=== PATIENT | male | born 1995 | race African-American/Black ===

== ENCOUNTER 2017-02-28 20:44 | Emergency (ER) | payer MEDICAID | END 2017-02-28 22:53 | disposition left against medical advice (07) | LOC: ER 21:59 | DX: M79.671 Pain in right foot (principal); Z53.21 Procedure and treatment not carried out due to patient leaving prior to being seen by health care provider ==

== ENCOUNTER 2019-10-13 23:47 | Emergency (ER) | payer MEDICAID ==
[~2019-10-13] VITALS: Ht 177.8 cm; Wt 71.0 kg
[2019-10-14] MEDS ORDERED: BACITRACIN ZINC OINT UDPKT TOP ONE (00:45)
[2019-10-14] MEDS ORDERED: IBUPROFEN 600MG TABLET PO ONE (00:45)
[2019-10-14] MEDS ORDERED: TETANUS, DIPHTHERIA, PERTUSSIS VAC/PF 0.5ML (>7YR OLD) IM ONE (00:45)
[2019-10-14] MEDS ORDERED: LIDOCAINE 1%/EPI 1:100,000 10 ML VIAL IJ ONE (01:45)
[2019-10-14] MEDS ORDERED: LIDOCAINE HCL/EPINEPHRINE 1%-EPI 1:100,000 20 ML VIAL INFIL NR (02:15)
[2019-10-14 02:40] VITALS: BP 114/71
== END 2019-10-14 02:56 | disposition home or self-care (01) ==
LOC: ER 23:47
DX: S51.811A Laceration without foreign body of right forearm, initial encounter (principal); X58.XXXA Exposure to other specified factors, initial encounter; Y93.89 Activity, other specified; Y92.89 Other specified places as the place of occurrence of the external cause; Y99.8 Other external cause status
CPT/HCPCS: 12002; 73090; 90471; 90715; 99283; J3490

== ENCOUNTER 2019-10-22 13:07 | Emergency (ER) | payer MEDICAID ==
[~2019-10-22] VITALS: Ht 177.8 cm; Wt 71.0 kg
[2019-10-22 13:28] VITALS: BP 107/49
[2019-10-22 14:33] LABS: CLARITY URINE CLEAR (CLEAR); COLOR URINE YELLOW (YELLOW); KETONES URINE NEGATIVE (NEGATIVE); LEUKOCYTE ESTERASE URINE NEGATIVE (NEGATIVE); NITRITE URINE NEGATIVE (NEGATIVE); OCCULT BLOOD URINE NEGATIVE (NEGATIVE); PROTEIN URINE NEGATIVE (NEGATIVE); SPECIFIC GRAVITY URINE 1.021 (1.005-1.030)
== END 2019-10-22 14:20 | disposition home or self-care (01) ==
LOC: ER 13:07
DX: Z48.00 Encounter for change or removal of nonsurgical wound dressing (principal); N48.1 Balanitis
CPT/HCPCS: 81003; 99283

== ENCOUNTER 2021-10-14 20:10 | Emergency (ER) | payer MEDICAID ==
[~2021-10-14] VITALS: Ht 177.8 cm; Wt 74.6 kg
[2021-10-14 21:35] VITALS: BP 113/64
[2021-10-15] MEDS ORDERED: TETANUS, DIPHTHERIA, PERTUSSIS VAC/PF 0.5ML (>10YR OLD) IM ONE (01:00)
[2021-10-15] MEDS ORDERED: LIDOCAINE HCL 1% 20ML VIAL (Pyxis) INJ INFIL ONE (01:00)
[2021-10-15] MEDS ORDERED: BACITRACIN ZINC OINT UDPKT TOP ONE (03:30)
[2021-10-15] MEDS ORDERED: IBUP-2028 MT (04:39)
== END 2021-10-15 05:12 | disposition home or self-care (01) ==
LOC: ER 20:10
DX: S61.511A Laceration without foreign body of right wrist, initial encounter (principal); S61.411A Laceration without foreign body of right hand, initial encounter; X99.1XXA Assault by knife, initial encounter; Y93.89 Activity, other specified; Y92.89 Other specified places as the place of occurrence of the external cause
CPT/HCPCS: 12002; 73110; 90471; 90715; 99283; J3490

== ENCOUNTER → 2021-10-14 | Emergency (ER) | payer MEDICAID ==
[~2021-10-14] VITALS: Ht 177.8 cm; Wt 63.0 kg
[~2021-10-14] MED LIST: IBUP-2028 MT
[2021-10-14 13:14] VITALS: BP 94/59
== END ==
LOC: ER 13:07
DX: Z53.21 Procedure and treatment not carried out due to patient leaving prior to being seen by health care provider (principal)

== ENCOUNTER 2024-05-17 09:09 | Emergency (ER) | payer OTHER, MEDICAID ==
[~2024-05-17] VITALS: Ht 177.8 cm; Wt 70.0 kg
[2024-05-17 09:11] VITALS: BP 129/65; TEMP 98.3; O2SAT 100
[2024-05-17 09:31] VITALS: PULSE 86; RESP 18; O2SAT 100
[2024-05-17] MEDS ORDERED: SULF1TAB48 MT (11:59)
[2024-05-17] MEDS ORDERED: CEPH250C2 MT (11:59)
== END 2024-05-17 12:46 | disposition home or self-care (01) ==
LOC: ER 09:09
DX: S30.91XA Unspecified superficial injury of lower back and pelvis, initial encounter (principal); F10.90 Alcohol use, unspecified, uncomplicated; X58.XXXA Exposure to other specified factors, initial encounter; Y93.89 Activity, other specified; Y92.89 Other specified places as the place of occurrence of the external cause; Y99.8 Other external cause status; Y90.9 Presence of alcohol in blood, level not specified
CPT/HCPCS: 99283